=== PATIENT | female | born 1990 | race Caucasian/White ===

== ENCOUNTER 2020-10-24 09:47 | Emergency (ER) | payer BC ==
[~2020-10-24] VITALS: Ht 162.6 cm; Wt 54.4 kg
[2020-10-24 10:14] VITALS: BP_SYST 116
[2020-10-24] MEDS ORDERED: ZIT250 PO (10:23)
[2020-10-24] MEDS ORDERED: PRED50TA PO (10:23)
[2020-10-24] MEDS ORDERED: HYDR-3917 PO (10:23)
[2020-10-24] MEDS ORDERED: cefTRIAXone 1 GM VIAL IM ONE (10:30)
[2020-10-24 11:13] VITALS: BP_SYST 116
== END 2020-10-24 11:13 | disposition home or self-care (01) ==
LOC: SED 09:47
DX: J36 Peritonsillar abscess (principal); Z88.1 Allergy status to other antibiotic agents; Z88.8 Allergy status to other drugs, medicaments and biological substances; Z79.899 Other long term (current) drug therapy
CPT/HCPCS: 96372; 99283; J0696